=== PATIENT | female | born 1990 | race Caucasian/White ===

== ENCOUNTER 2024-08-11 14:34 | Emergency (ER) | payer MEDICAID, SELFPAY ==
[2024-08-11] VITALS (7 sets, daily range): BP systolic 111–127; BP diastolic 66–83; PULSE 74–90; RESP 12–20; TEMP 36.6–36.9; O2SAT 98–99; BMI 38.0
--- NOTE | 2024-08-11 14:54 | XR_ITS ---
Examination: CT abdomen with intravenous contrast CT pelvis with intravenous contrast 2-D coronal reconstructions 2-D sagittal reconstructions Date and time of exam:August 11, 2024 1731 hrs. Indications: Injury to the abdomen today. CTDI: vol (mGy) 32.8 DLP: (mGycm) 1049 Technique: Multiple axial sections of the abdomen and pelvis have been obtained. 64 slice high-resolution scanner used. 3 mm axial sections have been obtained, post intravenous injection 100 cc Isovue-370 2-D sagittal coronal reconstructions Findings: There is no focal liver or splenic or renal laceration, no perinephric hematoma No gallstones Abdominal aorta intact, no free blood in the abdomen or pelvis Negative for pneumoperitoneum No bowel obstruction 25 mm left adnexal cyst 4 mm calculus in the urinary bladder Air in the urinary bladder Advanced disc narrowing L5-S1 no lumbar vertebral body compression fracture Bones of the pelvis and hips appear intact Impression: No abdominal parenchymal laceration Abdominal aorta intact No free blood in the abdomen or pelvis
--- NOTE | 2024-08-11 14:54 | XR_ITS ---
Examination: CT cervical spine without contrast 2-D sagittal reconstructions 2-D coronal reconstructions 3-D reconstructions. Exam date and time:August 11, 2024 1719 hrs. Indications: Injury to the neck today, neck pain CTDI:vol (mGy) 16.4 DLP: (mGycm) 316 Technique: Multiple 2 mm axial sections of the cervical spine have been obtained. The coronal and sagittal reconstructions have been obtained. 3-D reconstructions have been obtained. Low dose protocols were performed. One or more of the following dose reduction techniques were used; automated exposure control, adjustment of the mA and/or KV according to patient size, use of iterative reconstruction technique. Findings: Axial sections demonstrate intact base of the skull. C1 exhibit satisfactory relationship to the odontoid. No acute cervical vertebral body fracture seen. Alignment posterior spinous processes satisfactory. Impression: No acute cervical fracture.
--- NOTE | 2024-08-11 14:54 | XR_ITS ---
Examination: CTA chest with intravenous contrast 2-D reconstructions 3-D reconstructions, vascular Date and time of exam: August 11, 2024 1731 hrs. Indications: Injury to the chest today, chest pain CTDI: vol (mGy) 10.7 DLP: (mGycm) 549 Technique: Multiple axial sections of the thorax have been obtained. 3 mm slice thickness, from below the hemidiaphragms to above the apices of the lungs. Mediastinal and lung density settings have been obtained. 2-D sagittal and coronal reconstructions. 3-D angiographic renderings, 3-D volume renderings, 3D post processing, vascular maximum intensity projections obtained. Contrast administered is 100 cc Isovue-370. Low dose protocols were performed. One or more of the following dose reduction techniques were used; automated exposure control, adjustment of the mA and/or KV according to patient size, use of iterative reconstruction technique. Findings: Suspicious for soft tissue mild left breast contusion axial image 30 Thoracic aorta pulmonary arteries intact No hemopericardium No pneumothorax pulmonary contusion or hemothorax Manubrium thoracic vertebral bodies sternum appear intact Ribs appear intact Impression: Suspicious for mild soft tissue contusion left breast Thoracic aorta pulmonary arteries intact. No hemopericardium pneumothorax or pulmonary contusion No visualized abdominal parenchymal laceration Abdominal aorta appears intact with no free blood in the abdomen
--- NOTE | 2024-08-11 14:55 | XR_ITS ---
Examination: CT lumbar spine, without contrast. 2-D sagittal reconstructions. 2-D coronal reconstructions. 3-D reconstructions. Date and time of exam:August 11, 2024 1725 hrs. Indications: Injury to the lower back today, lower back pain CTDI: vol (mGy):40.8 DLP: (mGycm):30 Technique: Multiple 1.25 mm axial sections of the lumbar spine have been obtained. 2-D sagittal and coronal reconstructions have been obtained. 3-D reconstructions have been obtained. Low dose protocols were performed. One or more of the following dose reduction techniques were used; automated exposure control, adjustment of the mA and/or KV according to patient size, use of iterative reconstruction technique. Findings: Adequate alignment lumbar vertebral bodies No lumbar vertebral body compression fracture There is advanced degenerative disc disease L5-S1 Lumbar pedicles laminated transverse and posterior spinous processes intact L5-S1 3 mm central lumbar disc bulge Impression: No acute lumbar fracture
--- NOTE | 2024-08-11 14:55 | XR_ITS ---
Examination: CT brain head without contrast. 2-D sagittal coronal reconstructions Date and time of exam:August 11, 2024 1715 hrs. Indications: Injury to the day. CTDI: vol (mGy):52.1 DLP: (mGycm):1004 Technique: Multiple CT axial sections of the brain have been obtained, 5 mm slice thickness. Contrast has not been administered. 2-D sagittal, coronal reconstructions have been obtained Low dose protocols were performed. One or more of the following dose reduction techniques were used; automated exposure control, adjustment of the mA and/or KV according to patient size, use of iterative reconstruction technique. Findings: No significant ventricular enlargement. Intra-axial or extra-axial hemorrhage density is not seen. No mass effect or midline shift Basal cisterns are not remarkable. Fourth ventricle is midline. Cranial vault intact. Impression: Negative for acute hemorrhage, mass effect or midline shift
--- NOTE | 2024-08-11 14:55 | XR_ITS ---
Examination: CT maxillofacial, without intravenous contrast. 2-D sagittal reconstructions. 3-D reconstructions. Date and time of exam:August 11, 2024 1719 hrs. Indications: Injury to the face today with laceration of the forehead CTDI: vol (mGy):40.7 DLP: (mGycm):696 Technique: Multiple axial images of maxillofacial region, 3.0 mm slice thickness. 2-D sagittal and coronal reconstructions. 3-D reconstructions. Low dose protocols were performed. One or more of the following dose reduction techniques were used; automated exposure control, adjustment of the mA and/or KV according to patient size, use of iterative reconstruction technique. Findings: Frontal bone frontal sinuses intact Orbital rims intact No depression zygomatic arches Pterygoid plates maxilla and the mandible intact Impression: No acute facial fracture.
--- NOTE | 2024-08-11 14:55 | EKG_ITS ---
[facility] Test Date: 2024-08-11 Pat Name: KRISHNA DUNN Department: Room: - Gender: Female Nutrition Coordinator: : 1990 Requested By: Jose Jain Order Number: [id number] Reading MD: Jose Jain Measurements Intervals [place] Rate: 80 P: 5 NV: 194 QRS: 16 QRSD: 95 T: -5 QT: 345 QTc: 399 Interpretive Statements SINUS RHYTHM MODERATE T-WAVE ABNORMALITY, CONSIDER ANTEROLATERAL ISCHEMIA [-0.1+ mV T WAVE IN V3-V6] Compared to ECG 12/13/2017 20:40:03 Possible ischemia now present T-wave abnormality still present /store/S0/[id number]/ecg/[id number].pdf
--- NOTE | 2024-08-11 14:55 | XR_ITS ---
Low Examination: CT thoracic spine, without contrast. 2-D sagittal reconstructions. 2-D coronal reconstructions. 3-D reconstructions. Date and time of exam:August 11, 2024 1725 hrs. Indications: Patient fell today with injury to the upper back, upper back pain CTDI: vol (mGy):35.8 DLP: (mGycm):1251 Technique: Multiple 1.25 mm axial sections of the thoracic spine without intravenous contrast have been obtained. 2-D sagittal and coronal reconstructions have been obtained. 3-D reconstructions have been obtained. Low dose protocols were performed. One or more of the following dose reduction techniques were used; automated exposure control, adjustment of the mA and/or KV according to patient size, use of iterative reconstruction technique. Findings: Significant osteopenia No acute thoracic vertebral body compression fracture Moderate diffuse thoracic disc narrowing Thoracic pedicles, laminae, transverse and posterior spinous processes intact No focal thoracic disc protrusion Impression: No acute thoracic fracture
[2024-08-11] MEDS: ONDANSETRON INJ 2 MG/ML INJ 2 ML 4 MG IV (14:56)
[2024-08-11] MEDS: SODIUM CHLORIDE 0.9% 1000 ML 1,000 ML 999 ML IV (14:57)
[2024-08-11] MEDS: KETOROLAC INJ 30 MG/ML VIAL IVP (14:58)
--- NOTE | 2024-08-11 15:24 | EDNOTE_ITS ---
ED Syncope RME/HPI General Chief Complaint: Syncope / Near Syncope Stated Complaint: SYNCOPE EPISODE Time Seen by Provider: 08/11/24 14:40 Arrival date/time: 08/11/24 14:34 RME / HPI RME / HPI narrative: This section includes all my notes and documentations, including HPI, PE, and ED course. Jose Neff MD HPI: 34-year-old female here to be evaluated after a syncopal episode. Patient only remembers going to the bathroom to throw up. Then coming here by EMS. Talk to the later when he showed up who help with the history. Since yesterday, she has not been feeling well throwing up and not eating. And she complained of headaches for the past couple weeks. When she was not seen for 10 to 20 minutes, his mom found her on the bathroom floor in a sitting position. Patient doesn't recall much details. She has an open wound in the forehead with bleeding. Currently, she reports headache. And trouble staying awake. No other complaints. ROS: All negative except as documented in HPI. Physical Exam: General: Patient is lethargic, obvious trouble staying awake. Eyes: Conjunctivae and lids clear. EOMI. PERRL. ENT: No nasal congestion. Pharynx normal. Tympanic membrane normal bilaterally. Neck: Supple. No carotid bruit. No JVD. Heart: RRR. Lungs: No respiratory distress. Good air movement. No rhonchi, wheezing, rales. Chest: No tenderness. Abdomen: Soft and nontender. Normal bowel sounds. No distension. No rebound or guarding. Back: No tenderness. Legs: No clubbing, cyanosis, edema. Skin: Warm and dry. In the left part of the forehead, there is a 0.5 cm gaping full?skin thickness laceration with active bleeding. Neuro: Oriented X 3. Cranial Nerves II-XII grossly intact. No peripheral motor deficits. Musculoskeletal: All major joints and bones are not tender with no limited ROM. I reviewed all diagnostic test results. My interpretation of the EKG is sinus rhythm with nonspecific ST?T changes. Blood tests remarkable for normal CBC, negative troponin/D-dimer/BNP, normal ABG, and normal CMP. CT scans pending. Treatment here included IV fluid, Zofran 4 mg IV, Toradol 30 mg IV, Tdap, and Unasyn 1.5 g IV. Laceration repair procedure note: The wound was prepped and draped in normal sterile fashion. Local anesthesia achieved with 1% lidocaine, 2 mL. Profuse irrigation performed with normal saline. Wound repaired with 1 staple. Good approximation and hemostasis achieved. Topical ABX and dressing applied. Patient tolerated well with no complications. At 6 PM on 08/11/24, the care of the patient was transferred to Dr. Sanders. Jose Neff MD Related Data Home Medications ?Medication ?Instructions ?Recorded ?Confirmed omeprazole 20 mg capsule,delayed 80 mg PO DAILY ##30 10/29/16 10/04/23 release ferrous sulfate 325 mg (65 mg 325 mg PO QDAY 08/06/23 10/04/23 iron) tablet labetalol 200 mg tablet 200 mg PO BID 08/06/23 10/04/23 acetaminophen 300 mg-codeine 30 mg 300 tab PO Q6H PRN Pain (Scale 09/05/23 10/04/23 tablet Score 7-10) vit no.95-ferrous 1 tab PO QDAY 09/05/23 10/04/23 fumarate 28 mg-folic acid 800 mcg tablet () Previous Rx's ?Medication ?Instructions ?Recorded amoxicillin 875 mg-potassium 1 tab PO Q12H #10 tabs 10/24/23 clavulanate 125 mg tablet ibuprofen 600 mg tablet 600 mg PO Q6H PRN pain #20 tabs 10/24/23 Allergies Allergy/AdvReac Type Severity Reaction Status Date / Time No Known Allergies Allergy Verified 10/21/23 17:59 Course Quality Measures none Orders Category Date Time Status Bedside COVID-19 Antigen Test NOW Care 08/11/24 14:52 Active Bedside Influenza A&B Antigen Test NOW Care 08/11/24 14:[address] Screening NOW Care 08/11/24 14:54 Active EKG (ED ONLY) *Do not use* NOW Care 08/11/24 14:55 Completed Saline [Insert IV] NOW Care 08/11/24 14:52 Active Straight [In and Out Catheter] X1 Care 08/11/24 14:52 Active Wound Care [Wound Care] NOW Care 08/11/24 14:[address] abdomen pelvis w con Stat Exams 08/11/24 14:[address] angio chest Stat Exams 08/11/24 14:[address] cervical spine wo con Stat Exams 08/11/24 14:[address] facial bones wo con Stat Exams 08/11/24 14:[address] head/brain wo con Stat Exams 08/11/24 14:[address] lumbar spine wo con Stat Exams 08/11/24 14:[address] thoracic spine wo con Stat Exams 08/11/24 14:55 Ordered EKG (ED Only) Stat Exams 08/11/24 14:55 Draft ABG [Arterial Blood Gas] Stat Lab 08/11/24 15:23 Completed Alcohol, Blood Medical Stat Lab 08/11/24 15:43 Completed Ammonia Stat Lab 08/11/24 15:43 Completed Amylase Stat Lab 08/11/24 15:43 Completed BNP [B-Type Natriuretic Peptide] Stat Lab 08/11/24 15:43 Completed Beta Hydroxybutyrate Stat Lab 08/11/24 15:43 Completed Blood Culture (Lab) Stat Lab 08/11/24 15:43 Received CBC Stat Lab 08/11/24 15:43 Completed CK [Creatine Kinase] Stat Lab 08/11/24 15:43 Completed CMP [Comprehensive Metabolic Panel] Stat Lab 08/11/24 15:43 Completed CRP [C-Reactive Protein] Stat Lab 08/11/24 15:43 Completed D-Dimer Stat Lab 08/11/24 15:43 Completed Drug Screen,Urine Stat Lab 08/11/24 16:49 Received ESR [Sed Rate (ESR)] Stat Lab 08/11/24 15:43 Completed HCG Qualitative,Urine Stat Lab 08/11/24 16:12 Completed HCG,Qualitative Serum Stat Lab 08/11/24 15:43 Completed Lactate (Lactic Acid) Stat Lab 08/11/24 15:43 Completed Lipase Stat Lab 08/11/24 15:43 Completed Magnesium Stat Lab 08/11/24 15:43 Completed PT [Prothrombin Time with INR] Stat Lab 08/11/24 15:43 Completed PTT [Partial Thromboplastin Time] Stat Lab 08/11/24 15:43 Completed Procalcitonin Stat Lab 08/11/24 15:43 Completed TSH [Thyroid Stimulating Hormone] Stat Lab 08/11/24 15:43 Completed Troponin I Stat Lab 08/11/24 15:43 Completed Ampicillin/Sulbac Inj [Unasyn Inj] 1.5 gm Med 08/11/24 14:55 Discontinued Sodium Chloride 0.9% (P) [Ns 0.9% (P)] 50 ml IV X1 Bacitracin Oint pkt Med 08/11/24 14:55 Discontinued 1 gm TOP X1 ONE Ketorolac Inj [Toradol Inj] Med 08/11/24 14:53 Discontinued 30 mg IVP X1 ONE Ondansetron Inj [Zofran Inj] Med 08/11/24 14:51 Discontinued 4 mg .ROUTE .STK-MED ONE Ondansetron Inj [Zofran Inj] Med 08/11/24 14:53 Discontinued 4 mg IV X1 ONE Sodium Chloride 0.9% 1000 ml [Ns] 1,000 ml Med 08/11/24 14:53 Discontinued IV 999 mls/hr Tet,Diphth,Pertuss(Acell)-Tdap [Boostrix Vacc] Med 08/11/24 14:55 Discontinued 0.5 ml IMI .ONCE ONE Vital Signs Vital signs: Vital Signs Temperature 98 F 08/11/24 14:38 Pulse Rate 86 08/11/24 14:38 Respiratory Rate 18 08/11/24 14:38 Blood Pressure 118/83 08/11/24 14:38 Pulse Oximetry (%) 98 08/11/24 14:38 Oxygen Delivery Method Room Air 08/11/24 14:38 Syncope Patient data External records reviewed:: [facility] previous records and EMS form Clinical information provided by:: patient, EMS and spouse Social determinants that could affect healthcare access:: none Patient has the following chronic illnesses:: See chart How is presenting disease/condition affected by chronic disease/condition?: uneffected by Evaluation data The following diagnostics were reviewed and interpreted by me:: lab results and EKG tracing(s) (My interpretation of the EKG is: Sinus rhythm (80 bpm) with nonspecific ST-T changes. Jose Neff MD) Lab and/or radiology exams considered but not ordered:: None Interpretation Summary: Complete diagnostic test results pending Medications / Prescriptions Medications or Prescriptions considered but not ordered:: None Medication administrations:: Medication Administration History Discontinued Medications Bacitracin (Bacitracin Oint 1 Gm Packet) 1 gm TOP X1 ONE Stop: 08/11/24 14:56 Last Admin: 08/11/24 16:11 Dose: 1 gm Documented By: MARIBETH Comments: given on pt's L forehead Diphtheria/Tetanus/Acell Pertussis (Diphth,Pertuss(Acell),Tet Vac 0.5 Ml Vial) 0.5 ml IMi .ONCE ONE Stop: 08/11/24 14:56 Last Admin: 08/11/24 16:11 Dose: 0.5 ml Documented By: MARIBETH Sodium Chloride (Ns) 1,000 mls @ 999 mls/hr IV .Q1H1M ONE Stop: 08/11/24 15:53 Last Admin: 08/11/24 14:57 Dose: 999 mls/hr Documented By: TC Ampicillin Sodium/Sulbactam (Sodium 1.5 gm/ Sodium Chloride) 50 mls @ 100 mls/hr IV X1 ONE Stop: 08/11/24 14:56 Last Infusion: 08/11/24 16:47 Dose: Infused Documented By: Admin: 08/11/24 16:10 Dose: 100 mls/hr Documented By: MARIBETH Ketorolac Tromethamine (Ketorolac Inj 30 Mg/Ml Vial) 30 mg IVP X1 ONE Stop: 08/11/24 14:54 Last Admin: 08/11/24 14:58 Dose: 30 mg Documented By: KUMAR Ondansetron HCl (Ondansetron Inj 2 Mg/Ml Inj 2 Ml) 4 mg IV X1 ONE; Protocol Stop: 08/11/24 14:54 Last Admin: 08/11/24 14:56 Dose: 4 mg Documented By: KUMAR Ondansetron HCl (Ondansetron Inj 2 Mg/Ml Inj 2 Ml) Confirm Administered Dose 4 mg .ROUTE .STK-MED ONE Stop: 08/11/24 14:52 Last Admin: 08/11/24 15:00 Dose: Not Given Documented By: TC Non-Admin Reason: Duplicate Medication on eMAR See HPI Consultations Consultation(s) initiated? (list below): No Diagnosis Syncope Differential Diagnosis: syncope due to orthostatic hypotension, vasovagal syncope, complete atrioventricular block, subarachnoid hemorrhage, pulmonary embolism and dehydration Most likely diagnosis given after review of the tests above:: Complete diagnostic test results pending Admission Indicated Admission indicated?: not indicated Explain why admission is indicated or not indicated:: Complete diagnostic test results pending Admission Request Was there a request for admission?: No Disposition Plan Disposition Plan: other (specify) (Complete diagnostic test results pending) Discharge Plan Prescriptions/Referrals Prescriptions/Med Rec: No Action omeprazole 20 MG capsule,delayed release(DR/EC) 80 mg PO DAILY Qty: 30 ferrous sulfate 325 mg (65 mg iron) tablet 325 mg PO QDAY Patient Comments: Take 1 tablet by mouth twice a day labetalol 200 mg tablet 200 mg PO BID Patient Comments: TAKE 1 TABLET BY MOUTH TWICE A DAY amoxicillin-pot clavulanate 875-125 mg tablet 1 tab PO Q12H Qty: 10 0RF ibuprofen 600 mg tablet 600 mg PO Q6H PRN (Reason: pain) Qty: 20 0RF acetaminophen-codeine 300-30 mg tablet 300 tab PO Q6H PRN (Reason: Pain (Scale Score 7-10)) Patient Comments: TAKE 1 TABLET BY MOUTH EVERY 6 HOURS NEEDED FOR HEADACHES PNV cmb#95-ferrous fumarate-FA [] 28 mg iron- 800 mcg tablet 1 tab PO QDAY Patient Comments: Take 1 tablet by mouth once a day Referrals: Eris Jones MD [Primary Care Provider] - In 1 week Problem List Clinical Impression: Syncope Patient/Caregiver Discharge Instructions Print Language: Belgian
[2024-08-11 15:30] LABS: Base Excess 0 (-3-3); HCO3 24 mEq/L (20-26); Inspired Oxygen, FIO2 21 %; O2 Saturation 98 % (91-98); PCO2 37 mmHg (32.0-48.0); PO2 85 mmHg (83-108); pH, Arterial 7.42 (7.35-7.45)
[2024-08-11 15:33] LABS: Allen Test Performed/OK; Puncture Site Right Radial
[2024-08-11 16:09] LABS: Basophils % (Auto) 0 % (0-2.5); Eosinophils % (Auto) 0 % (0-10); Hematocrit 39.5 % (36.0-46.0); Immature Granulocytes % (Auto) 0 % (0-0); Immature Granulocytes Auto 0.01 Thou/mm3 (0.00-0.00); Lymphocytes # (Auto) 1.3 Thou/mm3 (1.0-4.8); Lymphocytes % (Auto) 23 % (10-50); Mean Corpuscular HGB Conc 32.9 g/dl (31.0-37.0); Mean Corpuscular Hemoglobin 29.6 pg (25.0-35.0); Mean Corpuscular Volume 90 fL (80-100); Monocytes # (Auto) 0.6 Thou/mm3 (0.0-0.8); Monocytes % (Auto) 11 % (0-12); Neutrophils # (Auto) 3.5 Thou/mm3 (1.8-7.7); Neutrophils % (Auto) 64 % (37-80); Nucleated Red Blood Cell % 0 /100 WBC (0); Platelet Count 262 Thou/mm3 (140-440); Red Blood Count 4.39 Miln/mm3 (4.00-5.20); White Blood Count 5.4 Thou/mm3 (3.6-11.0)
[2024-08-11] MEDS: AMPICILLIN/SULBAC INJ 1.5 GM in SODIUM CHLORIDE 0.9% (P) 50 ML IV (16:10)
[2024-08-11] MEDS: DIPHTH,PERTUSS(ACELL),TET VAC 0.5 ML VIAL IMi (16:11)
[2024-08-11] MEDS: BACITRACIN OINT 1 GM PACKET TOP (16:11)
[2024-08-11 16:24] LABS: Sed Rate (ESR) 32 mm/hr (0-20)
[2024-08-11 16:26] LABS: B-Type Natriuretic Peptide < 20 pg/mL (0-100); Partial Thromboplastin Time 22.2 Seconds (22.0-36.0); Prothrombin Time 11.1 Seconds (9.0-12.2)
[2024-08-11 16:30] LABS: Ammonia < 10 uMol/L (11-32); HCG,Qualitative Serum Negative
[2024-08-11 16:31] LABS: Alanine Aminotransferase 19 U/L (10-49); Albumin, Serum 4.8 gm/dL (3.5-5.0); Albumin/Globulin Ratio 2.2 (1.2-2.2); Alcohol, Blood Medical < 10.0 mg/dL (0-10.0); Alkaline Phosphatase 56 U/L (46-116); Amylase 40 U/L (30-118); Anion Gap 7 (7-16); Aspartate Amino Transferase 17 U/L (0-34); BUN/Creatinine Ratio 12 Ratio (12-20); Bilirubin,Total 0.3 mg/dL (0.3-1.2); Blood Urea Nitrogen 11 mg/dL (9-23); C-Reactive Protein 2.7 mg/dL (0.0-0.9); Calcium 9.3 mg/dL (8.3-10.6); Calcium (Corrected) 9.3 mg/dL (8.5-10.1); Chloride 106 mMol/L (98-107); Creatine Kinase 96 U/L (34-171); Creatinine (Component) 0.9 mg/dL (0.6-1.3); Estimated Creatinine Clearance 116.4 mL/min (>60); Globulin 2.2 gm/dL (2.3-3.5); Glucose 111 mg/dL (74-106); Lipase 27 U/L (12-53); Magnesium 1.9 mg/dL (1.6-2.6); Osmolality,Calculated 279 (275-295); Potassium 3.6 mMol/L (3.4-5.1); Sodium 140 mMol/L (136-145); Thyroid Stimulating Hormone 0.62 uIU/mL (0.55-4.78); Troponin I < 0.002 ng/mL (0.0-0.045); eGFR > 60 See Note
[2024-08-11 16:32] LABS: D-Dimer 439 ng/mL (<600)
[2024-08-11 16:34] LABS: Procalcitonin 0.13 ng/ml (0.0-0.49)
[2024-08-11 16:59] LABS: Beta Hydroxybutyrate 0.5 mmol/L (<0.6)
[2024-08-11 17:04] LABS: HCG Qualitative,Urine Negative
[2024-08-11 17:27] LABS: Amphetamine/Methamp Scrn,U Negative (Negative); Barbiturate Screen,Urine Negative (Negative); Benzodiazepines Screen,Urine Negative (Negative); Benzoylecgonine Screen, Ur Negative (Negative); Fentanyl Screen,Urine Negative (Negative); Opiate Screen,Urine Negative (Negative); THC Screen,Urine Positive (Negative)
--- NOTE | 2024-08-11 19:39 | EDNOTE_ITS ---
Emergency Room Addendum Addendum Narrative: 1800: Care assumed from Dr. Neff, the previous shift emergency physician. Past medical, surgical, social and family history reviewed. Vitals and home medications reviewed. I will assume the care of the patient at this time, pending remainder of diagnostic tests and final disposition. Please refer to the emergency department record for history and examination from initial visit.? Physical exam by me shows patient under no acute distress at this time. 2005: Patient remains clinically stable throughout the emergency department visit. Re-assessment at the time of disposition demonstrates that the patient is in no acute distress. We reviewed all the results, analysis, and treatment plans. Patient is amenable to discharge. Strict return precautions were outlined. Patient was discharged in stable condition. Diagnoses: Syncope, laceration of forehead. RADIOLOGY Procedure(s): CT lumbar spine wo [facility] Accession Number(s): [id number] cc: Eris Jones MD; Jose Neff MD; Uri Monterroso MD~ Examination: CT lumbar spine, without contrast. 2-D sagittal reconstructions. 2-D coronal reconstructions. 3-D reconstructions. Date and time of exam:August 11, 2024 1725 hrs. Indications: Injury to the lower back today, lower back pain CTDI: vol (mGy):40.8 DLP: (mGycm):30 Technique: Multiple 1.25 mm axial sections of the lumbar spine have been obtained. 2-D sagittal and coronal reconstructions have been obtained. 3-D reconstructions have been obtained. Low dose protocols were performed. One or more of the following dose reduction techniques were used; automated exposure control, adjustment of the mA and/or KV according to patient size, use of iterative reconstruction technique. Findings: Adequate alignment lumbar vertebral bodies No lumbar vertebral body compression fracture There is advanced degenerative disc disease L5-S1 Lumbar pedicles laminated transverse and posterior spinous processes intact L5-S1 3 mm central lumbar disc bulge Impression: No acute lumbar fracture Dictated By: Uri Monterroso MD Procedure(s): CT head/brain wo con Accession Number(s): [id number] cc: Eris Jones MD; Jose Neff MD; Uri Monterroso MD~ Examination: CT brain head without contrast. 2-D sagittal coronal reconstructions Date and time of exam:August 11, 2024 1715 hrs. Indications: Injury to the day. CTDI: vol (mGy):52.1 DLP: (mGycm):1004 Technique: Multiple CT axial sections of the brain have been obtained, 5 mm slice thickness. Contrast has not been administered. 2-D sagittal, coronal reconstructions have been obtained Low dose protocols were performed. One or more of the following dose reduction techniques were used; automated exposure control, adjustment of the mA and/or KV according to patient size, use of iterative reconstruction technique. Findings: No significant ventricular enlargement. Intra-axial or extra-axial hemorrhage density is not seen. No mass effect or midline shift Basal cisterns are not remarkable. Fourth ventricle is midline. Cranial vault intact. Impression: Negative for acute hemorrhage, mass effect or midline shift Dictated By: Uri Monterroso MD Procedure(s): CT facial bones wo con Accession Number(s): [id number] cc: Eris Jones MD; Jose Neff MD; Uri Monterroso MD~ Examination: CT maxillofacial, without intravenous contrast. 2-D sagittal reconstructions. 3-D reconstructions. Date and time of exam:August 11, 2024 1719 hrs. Indications: Injury to the face today with laceration of the forehead CTDI: vol (mGy):40.7 DLP: (mGycm):696 Technique: Multiple axial images of maxillofacial region, 3.0 mm slice thickness. 2-D sagittal and coronal reconstructions. 3-D reconstructions. Low dose protocols were performed. One or more of the following dose reduction techniques were used; automated exposure control, adjustment of the mA and/or KV according to patient size, use of iterative reconstruction technique. Findings: Frontal bone frontal sinuses intact Orbital rims intact No depression zygomatic arches Pterygoid plates maxilla and the mandible intact Impression: No acute facial fracture. Dictated By: Uri Monterroso MD Procedure(s): CT angio chest Accession Number(s): [id number] cc: Eris Jones MD; Jose Neff MD; Uri Monterroso MD~ Examination: CTA chest with intravenous contrast 2-D reconstructions 3-D reconstructions, vascular Date and time of exam: August 11, 2024 1731 hrs. Indications: Injury to the chest today, chest pain CTDI: vol (mGy) 10.7 DLP: (mGycm) 549 Technique: Multiple axial sections of the thorax have been obtained. 3 mm slice thickness, from below the hemidiaphragms to above the apices of the lungs. Mediastinal and lung density settings have been obtained. 2-D sagittal and coronal reconstructions. 3-D angiographic renderings, 3-D volume renderings, 3D post processing, vascular maximum intensity projections obtained. Contrast administered is 100 cc Isovue-370. Low dose protocols were performed. One or more of the following dose reduction techniques were used; automated exposure control, adjustment of the mA and/or KV according to patient size, use of iterative reconstruction technique. Findings: Suspicious for soft tissue mild left breast contusion axial image 30 Thoracic aorta pulmonary arteries intact No hemopericardium No pneumothorax pulmonary contusion or hemothorax Manubrium thoracic vertebral bodies sternum appear intact Ribs appear intact Impression: Suspicious for mild soft tissue contusion left breast Thoracic aorta pulmonary arteries intact. No hemopericardium pneumothorax or pulmonary contusion No visualized abdominal parenchymal laceration Abdominal aorta appears intact with no free blood in the abdomen Dictated By: Uri Monterroso MD Procedure(s): CT cervical spine wo [facility] Accession Number(s): [id number] cc: Eris Jones MD; Jose Neff MD; Uri Monterroso MD~ Examination: CT cervical spine without contrast 2-D sagittal reconstructions 2-D coronal reconstructions 3-D reconstructions. Exam date and time:August 11, 2024 1719 hrs. Indications: Injury to the neck today, neck pain CTDI:vol (mGy) 16.4 DLP: (mGycm) 316 Technique: Multiple 2 mm axial sections of the cervical spine have been obtained. The coronal and sagittal reconstructions have been obtained. 3-D reconstructions have been obtained. Low dose protocols were performed. One or more of the following dose reduction techniques were used; automated exposure control, adjustment of the mA and/or KV according to patient size, use of iterative reconstruction technique. Findings: Axial sections demonstrate intact base of the skull. C1 exhibit satisfactory relationship to the odontoid. No acute cervical vertebral body fracture seen. Alignment posterior spinous processes satisfactory. Impression: No acute cervical fracture. Dictated By: Uri Monterroso MD Procedure(s): CT abdomen pelvis w con Accession Number(s): [id number] cc: Eris Jones MD; Jose Neff MD; Uri Monterroso MD~ Examination: CT abdomen with intravenous contrast CT pelvis with intravenous contrast 2-D coronal reconstructions 2-D sagittal reconstructions Date and time of exam:August 11, 2024 1731 hrs. Indications: Injury to the abdomen today. CTDI: vol (mGy) 32.8 DLP: (mGycm) 1049 Technique: Multiple axial sections of the abdomen and pelvis have been obtained. 64 slice high-resolution scanner used. 3 mm axial sections have been obtained, post intravenous injection 100 cc Isovue-370 2-D sagittal coronal reconstructions Findings: There is no focal liver or splenic or renal laceration, no perinephric hematoma No gallstones Abdominal aorta intact, no free blood in the abdomen or pelvis Negative for pneumoperitoneum No bowel obstruction 25 mm left adnexal cyst 4 mm calculus in the urinary bladder Air in the urinary bladder Advanced disc narrowing L5-S1 no lumbar vertebral body compression fracture Bones of the pelvis and hips appear intact Impression: No abdominal parenchymal laceration Abdominal aorta intact No free blood in the abdomen or pelvis Dictated By: Uri Monterroso MD
[2024-08-11] MEDS: HYDROcodone/APAP 5/325 TABLET 1 TAB PO (21:05)
== END 2024-08-11 21:18 | disposition home or self-care (01) ==
PROVIDERS: Emergency Medicine; Emergency Provider Emergency Medicine; PCP Internal Medicine
DX: S01.81XA Laceration without foreign body of other part of head, initial encounter (principal); R55 Syncope and collapse; S39.92XA Unspecified injury of lower back, initial encounter; S09.90XA Unspecified injury of head, initial encounter; S29.9XXA Unspecified injury of thorax, initial encounter; S19.9XXA Unspecified injury of neck, initial encounter; S39.91XA Unspecified injury of abdomen, initial encounter; X58.XXXA Exposure to other specified factors, initial encounter; Z23 Encounter for immunization
CPT/HCPCS: 12011; 51701; 36415; 36600; 70450; 70486; 71275; 72125; 72128; 72131; 74177; 80053; 80307; 80320; 81001; 81025; 82010; 82140; 82150; 82550; 82803; 83605; 83690; 83735; 83880; 84145; 84443; 84484; 84703; 85025; 85379; 85610; 85652; 85730; 86140; 87040; 87077; 87186; 87400; 87811; 90471; 90715; 93005; 96361; 96365; 96375; 99285; A4649; J0295; J1885; J2405; J7030; J7050; Q9967; A9270; G0480

== ENCOUNTER 2025-04-27 14:39 | Emergency (ER) | payer MEDICAID, SELFPAY ==
[2025-04-27 14:40] VITALS: BMI 39.5
[2025-04-27 14:48] VITALS: BP 129/87; PULSE 82; RESP 16; TEMP 36.8; O2SAT 95
--- NOTE | 2025-04-27 15:02 | XR_ITS ---
Examination: Hand, left Technique: Hand AP, oblique, lateral 3 views Date and time of exam: 04/27/2025, 3:20 PM INDICATION: Third digit injury COMPARISON: 10/14/2026. FINDINGS: No acute bony abnormality. No foreign body or soft tissue abnormality. No chronic degenerative changes. IMPRESSION: Negative exam.
--- NOTE | 2025-04-28 07:36 | PD.EDHAND ---
Upper Extremity Injury RME/HPI General Chief Complaint: Hand/Wrist Problems Stated Complaint: LEFT MIDDLE FINGER INJURY Time Seen by Provider: 04/27/25 14:52 Arrival date/time: 04/27/25 14:39 Limitations: no limitations RME / HPI RME / HPI narrative: 34-year-old female here with left middle finger injury. States thinks it is broken she almost fell over and put all her weight on her left hand. Has jammed her finger before but this feels more intense. No other fingers injured no other body part injured no loss of consciousness. Related Data Home Medications ?Medication ?Instructions ?Recorded ?Confirmed omeprazole 20 mg capsule,delayed 80 mg PO DAILY ##30 10/29/16 10/04/23 release ferrous sulfate 325 mg (65 mg 325 mg PO QDAY 08/06/23 10/04/23 iron) tablet labetalol 200 mg tablet 200 mg PO BID 08/06/23 10/04/23 acetaminophen 300 mg-codeine 30 mg 300 tab PO Q6H PRN Pain (Scale 09/05/23 10/04/23 tablet Score 7-10) vit no.95-ferrous 1 tab PO QDAY 09/05/23 10/04/23 fumarate 28 mg-folic acid 800 mcg tablet () Previous Rx's ?Medication ?Instructions ?Recorded amoxicillin 875 mg-potassium 1 tab PO Q12H #10 tabs 10/24/23 clavulanate 125 mg tablet ibuprofen 600 mg tablet 600 mg PO Q6H PRN pain #20 tabs 10/24/23 Allergies Allergy/AdvReac Type Severity Reaction Status Date / Time No Known Allergies Allergy Verified 10/21/23 17:59 Review of Systems Review of Systems Systems Reviewed: All systems reviewed, normal except as documented Musculoskeletal Musculoskeletal: Reports as per HPI ED Exam General Limitations: Present no limitations General appearance: Present alert and in no apparent distress Eye Eye exam: Present normal appearance, PERRL and EOMI Respiratory Respiratory exam: Present normal lung sounds bilaterally Cardiovascular Cardiovascular exam: Present regular rate, normal rhythm and normal heart sounds Abdominal Exam Abdominal exam: Present soft and normal bowel sounds Extremities Exam Extremities exam: Present full ROM and tenderness (TTP from mid to distal joint of left middle finger) Back Exam Back exam: Present normal inspection and full ROM Psychiatric Psychiatric exam: Present normal affect and normal mood Skin Skin exam: Present warm, dry, intact and normal color Course Quality Measures none Orders Category Date Time Status Splint / Immobilizer STAT Care 04/27/25 15:33 Completed XR hand LT 2V Stat Exams 04/27/25 15:02 Completed Vital Signs Vital signs: Vital Signs Temperature 98.3 F 04/27/25 14:48 Pulse Rate 82 04/27/25 14:48 Respiratory Rate 16 04/27/25 14:48 Blood Pressure 129/87 H 04/27/25 14:48 Pulse Oximetry (%) 95 04/27/25 14:48 Oxygen Delivery Method Room Air 04/27/25 14:48 PROCEDURES: Splint Fabrication: Pre-Fabricated Type: Finger Protector Reason for Splint: Pain Management Site condition: Pain Circulation Distal to Splint: Yes Movement Distal to Splint: Yes Senation Distal to Splint: Yes Tolerance: Tolerates Well Extremity Injury Patient data External records reviewed:: [facility] previous records Clinical information provided by:: patient Social determinants that could affect healthcare access:: other (specify) (PCP with no appointment we can) Patient has the following chronic illnesses:: None How is presenting disease/condition affected by chronic disease/condition?: no chronic disease Evaluation data The following diagnostics were reviewed and interpreted by me:: radiology exam(s) Lab and/or radiology exams considered but not ordered:: All performed as considered Interpretation Summary: No fracture or dislocation of finger on x-ray Medications / Prescriptions Medications or Prescriptions considered but not ordered:: Narcotics were considered but not warranted Medication administrations:: Declined medication today Consultations Consultation(s) initiated? (list below): No Diagnosis Upper Extremity Injury Differential Diagnosis: sprain and strain of wrist, fracture of wrist, dislocation of finger, dislocation of shoulder, fracture of humerus and other (Finger fracture) Most likely diagnosis given after review of the tests above:: Finger contusion and sprain Admission Indicated Admission indicated?: not indicated Admission Request Was there a request for admission?: No Disposition Plan Disposition Plan: Discharge Discharge Attestation Discharge Attestation: The patient and all family members were given an opportunity to ask questions and understood the discharge instructions. Discharge instructions specifically effects, indications for sooner follow up or return to the emergency department, and the expected course of current diagnosis. Patient condition: Stable Discharge Plan Plan Patient Disposition: HOME (Self Care) Discharge Disposition comment: f/u with pcp in 2-3days Prescriptions/Referrals Prescriptions/Med Rec: No Action omeprazole 20 MG capsule,delayed release(DR/EC) 80 mg PO DAILY Qty: 30 ferrous sulfate 325 mg (65 mg iron) tablet 325 mg PO QDAY Patient Comments: Take 1 tablet by mouth twice a day labetalol 200 mg tablet 200 mg PO BID Patient Comments: TAKE 1 TABLET BY MOUTH TWICE A DAY amoxicillin-pot clavulanate 875-125 mg tablet 1 tab PO Q12H Qty: 10 0RF ibuprofen 600 mg tablet 600 mg PO Q6H PRN (Reason: pain) Qty: 20 0RF acetaminophen-codeine 300-30 mg tablet 300 tab PO Q6H PRN (Reason: Pain (Scale Score 7-10)) Patient Comments: TAKE 1 TABLET BY MOUTH EVERY 6 HOURS NEEDED FOR HEADACHES PNV no.95-ferrous fumarate-FA [] 28 mg iron- 800 mcg tablet 1 tab PO QDAY Patient Comments: Take 1 tablet by mouth once a day Referrals: Eris Jones MD [Primary Care Provider] - In 1 week Problem List Clinical Impression: Sprain of finger, left Patient/Caregiver Discharge Instructions Print Language: Citizen Of [place] Stand Alone Forms: Olga Award Info., Patient Portal Info Letter PA/TIRE CARE MANAGER Supervising Physician PA/TIRE CARE MANAGER Supervising Physician: Dr. bruno
== END 2025-04-27 17:21 | disposition home or self-care (01) ==
PROVIDERS: Emergency Provider Physician Assistant; PCP Internal Medicine
DX: S63.613A Unspecified sprain of left middle finger, initial encounter (principal); X58.XXXA Exposure to other specified factors, initial encounter
CPT/HCPCS: 29130; 73120; 99284

== ENCOUNTER → 2025-07-05 | Outpatient (CLI) | payer MEDICAID, SELFPAY ==
--- NOTE | 2025-07-05 10:30 | XR_ITS ---
Examination: Arterial duplex lower extremity study. Date and time of exam: July 05, 2025, 10:30 a.m. INDICATIONS: Bilateral leg pain and swelling post hiking injury 3 weeks ago Findings: Duplex sonographic imaging of the lower extremity arteries using B-mode/Melvin scale imaging and Doppler spectral analysis and color flow. Ankle brachial indices have been recorded. Right common femoral artery demonstrates triphasic flow. Right superficial femoral artery demonstrates triphasic flow. Right popliteal artery demonstrates triphasic flow. Right posterior tibial artery demonstrated triphasic flow. Right ankle/brachial index is 1.0. Left common femoral artery demonstrates triphasic flow. Left superficial femoral artery demonstrates triphasic flow. Left popliteal artery demonstrates triphasic flow. Left posterior tibial artery demonstrated triphasic flow. Impression: No significant obstructive arterial disease, if symptoms persist, consider correlation with CTA abdominal aorta iliofemoral runoff post intravenous contrast
== END | disposition home or self-care (01) ==
PROVIDERS: PCP Radiology Radiation Oncology; Referring Provider Radiology Radiation Oncology; Visit Provider Radiology Radiation Oncology
DX: R60.0 Localized edema (principal)
CPT/HCPCS: 93925